=== PATIENT | male | born 1945 | race Caucasian/White ===

== ENCOUNTER → 2019-08-03 08:35 | Outpatient (CLI) | payer MEDICARE, OTHER, SELFPAY ==
[2019-07-15 10:09] VITALS: BMI 27.3
--- NOTE | 2019-08-03 08:38 | ECHOD_ITS ---
Reason For Study: Valve Replacement Evaluation Procedure This was a 2D Doppler, Color Flow transthoracic echocardiogram. The study was technically difficult. Exam performed in department. Left Ventricle Normal LV size. Left ventricular systolic function is normal. The estimated ejection fraction is 55 %. Post operative septal motion. Right Ventricle Normal RV size. Normal systolic function. Atria The left atrium is mildly enlarged. Normal right atrium. No doppler evidence for ASD. Mitral Valve Mild-Moderate mitral valve stenosis. Stable appearing bioprosthetic mitral valve apparatus. Trivial transvalvular insufficiency of the mitral valve. Tricuspid Valve Normal tricuspid valve. Trivial tricuspid valve insufficiency. Right ventricular systolic pressure estimated to be 27 mmHg. Aortic Valve Trisinus/trileaflet aortic valve. Mild focal aortic valve calcification. Trivial aortic valve insufficiency. Pulmonic Valve The pulmonic valve is not well visualized. Trivial pulmonic valve insufficiency. Great Vessels The aortic root is not well visualized. Pericardium/Pleural No pericardial effusion. MMode/2D Measurements & Calculations LVIDd: 4.1 cm IVSd: 1.3 cm LA dimension: 4.5 cm LVIDs: 2.6 cm LVPWd: 0.96 cm RVDd: 4.2 cm FS: 35.3 % LAV(MOD-bp): 51.4 ml LA A4 area: 17.9 cm2 RA A4 area: 17.2 cm2 LAV(MOD-bp) Indexed: 23.6 ml/m2 LAV(MOD-sp2): 57.3 ml LAV(MOD-sp4): 44.8 ml Time Measurements MV dec time: 0.40 sec Doppler Measurements & Calculations MV E max gildardo: 155.3 cm/sec Lat Peak E' Gildardo: 3.4 cm/sec MV V2 max: 192.6 cm/sec MV A max gildardo: 95.4 cm/sec E/E' lat: 46.3 MV max P.8 mmHg MV E/A: 1.6 MV V2 mean: 101.4 cm/sec MV mean P.9 mmHg MV V2 VTI: 63.4 cm MV P1/2t max gildardo: 192.6 cm/sec Ao V2 max: 146.4 cm/sec AI max gildardo: 427.6 cm/sec MV P1/2t: 121.2 msec Ao max P.6 mmHg AI max P.1 mmHg MV dec slope: 465.4 cm/sec2 Ao V2 mean: 98.7 cm/sec AI dec slope: 218.4 cm/sec2 MVA(P1/2t): 1.8 cm2 Ao mean P.4 mmHg AI P1/2t: 573.3 msec Ao V2 VTI: 30.2 cm LV V1 max: 84.1 cm/sec PA V2 max: 95.3 cm/sec TR max gildardo: 243.9 cm/sec LV V1 max P.8 mmHg TR max P.8 mmHg LV V1 mean P.5 mmHg LV V1 mean: 57.3 cm/sec LV V1 VTI: 20.1 cm Interpretation Summary The study was technically difficult. Left ventricular systolic function is normal. The estimated ejection fraction is 55 %. Post operative septal motion. The left atrium is mildly enlarged. Stable appearing bioprosthetic mitral valve apparatus. Mild-Moderate mitral valve stenosis. Trivial transvalvular insufficiency of the mitral valve. Trivial tricuspid valve insufficiency. Mild focal aortic valve calcification. Trivial aortic valve insufficiency. Trivial pulmonic valve insufficiency. Right ventricular systolic pressure estimated to be 27 mmHg. Transmitral diastolic flow velocities suggest diastolic dysfunction (pseudonormal pattern). Ordering Physician: Jin Bower Referring Physician: Paola Carter Performed By: Riley Pedroza RCS
== END ==
PROVIDERS: Family Provider Internal Medicine; PCP Internal Medicine; Referring Provider Internal Medicine Cardiovascular Disease; Visit Provider Internal Medicine Cardiovascular Disease
DX: I48.0 Paroxysmal atrial fibrillation (principal); Z95.3 Presence of xenogenic heart valve
CPT/HCPCS: 93306

== ENCOUNTER 2019-08-13 09:49 | Outpatient (RCR) | payer MEDICARE, OTHER, SELFPAY ==
[2019-07-15 10:09] VITALS: BMI 27.3
[2019-08-13 11:07] LABS: International Normalized Ratio 2.8; Prothrombin Time (Protime)PT. 29.2 SECONDS (11.7-14.9)
== END 2019-08-13 18:00 | disposition home or self-care (01) ==
LOC: LAB 09:49
PROVIDERS: Family Provider Internal Medicine; PCP Internal Medicine; Referring Provider Internal Medicine Cardiovascular Disease; Visit Provider Internal Medicine Cardiovascular Disease
DX: I48.92 Unspecified atrial flutter (principal); Z79.01 Long term (current) use of anticoagulants
CPT/HCPCS: 36415; 85610

== ENCOUNTER 2019-09-13 10:46 | Outpatient (RCR) | payer MEDICARE, OTHER, SELFPAY ==
[2019-07-15 10:09] VITALS: BMI 27.3
[2019-09-13 11:45] LABS: International Normalized Ratio 3.2; Prothrombin Time (Protime)PT. 32.9 SECONDS (11.7-14.9)
== END 2019-09-13 18:00 | disposition home or self-care (01) ==
LOC: LAB 10:46
PROVIDERS: Family Provider Internal Medicine; PCP Internal Medicine; Referring Provider Internal Medicine Cardiovascular Disease; Visit Provider Internal Medicine Cardiovascular Disease
DX: I48.92 Unspecified atrial flutter (principal); Z79.01 Long term (current) use of anticoagulants
CPT/HCPCS: 36415; 85610

== ENCOUNTER 2019-09-27 10:06 | Outpatient (RCR) | payer MEDICARE, OTHER, SELFPAY ==
[2019-07-15 10:09] VITALS: BMI 27.3
[2019-09-27 10:56] LABS: International Normalized Ratio 2.1; Prothrombin Time (Protime)PT. 23.9 SECONDS (11.7-14.9)
== END 2019-09-27 18:00 | disposition home or self-care (01) ==
LOC: LAB 10:06
PROVIDERS: Family Provider Internal Medicine; PCP Internal Medicine; Referring Provider Internal Medicine Cardiovascular Disease; Visit Provider Internal Medicine Cardiovascular Disease
DX: I48.92 Unspecified atrial flutter (principal); Z79.01 Long term (current) use of anticoagulants
CPT/HCPCS: 36415; 85610

== ENCOUNTER 2019-11-01 10:55 | Outpatient (RCR) | payer MEDICARE, OTHER, SELFPAY ==
[2019-07-15 10:09] VITALS: BMI 27.3
[2019-11-01 11:41] LABS: International Normalized Ratio 2.7; Prothrombin Time (Protime)PT. 28.4 SECONDS (11.7-14.9)
== END 2019-11-01 18:00 | disposition home or self-care (01) ==
LOC: LAB 10:55
PROVIDERS: Family Provider Internal Medicine; PCP Internal Medicine; Referring Provider Internal Medicine Cardiovascular Disease; Visit Provider Internal Medicine Cardiovascular Disease
DX: I48.92 Unspecified atrial flutter (principal); Z79.01 Long term (current) use of anticoagulants
CPT/HCPCS: 36415; 85610

== ENCOUNTER 2019-11-29 11:05 | Outpatient (RCR) | payer MEDICARE, OTHER, SELFPAY ==
[2019-07-15 10:09] VITALS: BMI 27.3
[2019-11-29 11:57] LABS: International Normalized Ratio 2.3; Prothrombin Time (Protime)PT. 25.7 SECONDS (11.7-14.9)
== END 2019-11-29 18:00 | disposition home or self-care (01) ==
LOC: LAB 11:05
PROVIDERS: Family Provider Internal Medicine; PCP Internal Medicine; Referring Provider Internal Medicine Cardiovascular Disease; Visit Provider Internal Medicine Cardiovascular Disease
DX: I48.92 Unspecified atrial flutter (principal); Z79.01 Long term (current) use of anticoagulants
CPT/HCPCS: 36415; 85610

== ENCOUNTER 2019-12-29 10:53 | Outpatient (RCR) | payer MEDICARE, OTHER, SELFPAY ==
[2019-07-15 10:09] VITALS: BMI 27.3
[2019-12-29 12:35] LABS: International Normalized Ratio 2.6; Prothrombin Time (Protime)PT. 27.7 SECONDS (11.7-14.9)
== END 2019-12-29 18:00 | disposition home or self-care (01) ==
LOC: LAB 10:53
PROVIDERS: Family Provider Internal Medicine; PCP Internal Medicine; Referring Provider Internal Medicine Cardiovascular Disease; Visit Provider Internal Medicine Cardiovascular Disease
DX: I48.92 Unspecified atrial flutter (principal); Z79.01 Long term (current) use of anticoagulants
CPT/HCPCS: 36415; 85610

== ENCOUNTER 2020-01-31 10:12 | Outpatient (RCR) | payer MEDICARE, OTHER, SELFPAY ==
[2019-07-15 10:09] VITALS: BMI 27.3
[2020-01-31 10:42] LABS: International Normalized Ratio 2.5; Prothrombin Time (Protime)PT. 26.5 SECONDS (11.7-14.9)
== END 2020-02-24 18:00 | disposition home or self-care (01) ==
LOC: LAB 10:12
PROVIDERS: Family Provider Internal Medicine; PCP Internal Medicine; Referring Provider Internal Medicine Cardiovascular Disease; Visit Provider Internal Medicine Cardiovascular Disease
DX: I48.92 Unspecified atrial flutter (principal); Z79.01 Long term (current) use of anticoagulants
CPT/HCPCS: 36415; 85610

== ENCOUNTER 2020-03-02 09:49 | Outpatient (RCR) | payer MEDICARE, OTHER, SELFPAY ==
[2020-02-07 10:54] VITALS: BMI 26.9
[2020-03-02 10:23] LABS: International Normalized Ratio 2.6
== END 2020-03-02 18:00 | disposition home or self-care (01) ==
LOC: LAB 09:49
PROVIDERS: Family Provider Internal Medicine; PCP Internal Medicine; Referring Provider Internal Medicine Cardiovascular Disease; Visit Provider Internal Medicine Cardiovascular Disease
DX: I48.92 Unspecified atrial flutter (principal); Z79.01 Long term (current) use of anticoagulants
CPT/HCPCS: 36415; 85610

== ENCOUNTER 2020-03-30 10:02 | Outpatient (RCR) | payer MEDICARE, OTHER, SELFPAY ==
[2020-02-07 10:54] VITALS: BMI 26.9
[2020-03-30 10:55] LABS: International Normalized Ratio 2.5
== END 2020-03-30 18:00 | disposition home or self-care (01) ==
LOC: LAB 10:02
PROVIDERS: Family Provider Internal Medicine; PCP Internal Medicine; Referring Provider Internal Medicine Cardiovascular Disease; Visit Provider Internal Medicine Cardiovascular Disease
DX: I48.92 Unspecified atrial flutter (principal); Z79.01 Long term (current) use of anticoagulants
CPT/HCPCS: 36415; 85610

== ENCOUNTER 2020-05-01 09:49 | Outpatient (RCR) | payer MEDICARE, OTHER, SELFPAY ==
[2020-02-07 10:54] VITALS: BMI 26.9
[2020-05-01 10:44] LABS: International Normalized Ratio 2.7; Prothrombin Time (Protime)PT. 28.5 SECONDS (11.7-14.9)
== END 2020-05-01 18:00 | disposition home or self-care (01) ==
LOC: LAB 09:49
PROVIDERS: Family Provider Internal Medicine; PCP Internal Medicine; Referring Provider Internal Medicine Cardiovascular Disease; Visit Provider Internal Medicine Cardiovascular Disease
DX: I48.92 Unspecified atrial flutter (principal); Z79.01 Long term (current) use of anticoagulants
CPT/HCPCS: 36415; 85610

== ENCOUNTER → 2020-05-26 09:42 | Outpatient (CLI) | payer MEDICARE, OTHER, SELFPAY ==
[2020-05-26 08:49] VITALS: BMI 27.3
[2020-05-26 11:32] LABS: AST(SGOT) 19 U/L (15-37); Alanine Aminotransfer ALT/SGPT 39 U/L (16-61); Albumin, Serum 3.9 g/dL (3.2-5.0); Alkaline Phosphatase 73 U/L (45-117); Anion Gap 2 (5-15); BUN 18 mg/dL (7-18); BUN/Creat Ratio 18.3 RATIO (10-20); Bilirubin, Direct 0.18 mg/dL (0.00-0.30); Calcium,Total 9.1 mg/dL (8.5-10.1); Chloride 103 mmol/L (98-107); Cholesterol 173 mg/dL (200); Creatinine, Serum 0.98 mg/dL (0.70-1.30); EST Glomerular Filtration Rate 79 mL/min (>60); Est Glom Filt Rate - Afr Amer 96 mL/min (>60); Globulin 3.9 g/dL (2.2-4.2); Glucose 111 mg/dL (74-106); High Density Lipoprotein 46 mg/dL; Magnesium 2.1 mg/dL (1.6-2.6); Potassium 4.2 mmol/L (3.5-5.1); Protein, Total 7.8 g/dL (6.4-8.2); Sodium Level 135 mmol/L (136-145); Triglycerides 135 mg/dL; Very Low Density Lipoprotein 27 mg/dL (5-40)
== END ==
PROVIDERS: PCP Internal Medicine; Referring Provider Internal Medicine Cardiovascular Disease; Visit Provider Internal Medicine Cardiovascular Disease
DX: E78.00 Pure hypercholesterolemia, unspecified (principal); I48.0 Paroxysmal atrial fibrillation; I48.92 Unspecified atrial flutter; Z98.890 Other specified postprocedural states; I10 Essential (primary) hypertension; Z79.01 Long term (current) use of anticoagulants; Z95.3 Presence of xenogenic heart valve
CPT/HCPCS: 36415; 80048; 80061; 80076; 83735

== ENCOUNTER 2020-05-30 10:24 | Outpatient (RCR) | payer MEDICARE, OTHER, SELFPAY ==
[2020-05-26 08:49] VITALS: BMI 27.3
[2020-05-30 11:03] LABS: International Normalized Ratio 2.5; Prothrombin Time (Protime)PT. 26.9 SECONDS (11.7-14.9)
== END 2020-06-26 18:00 | disposition home or self-care (01) ==
LOC: LAB 10:24
PROVIDERS: Family Provider Internal Medicine; PCP Internal Medicine; Referring Provider Internal Medicine Cardiovascular Disease; Visit Provider Internal Medicine Cardiovascular Disease
DX: I48.92 Unspecified atrial flutter (principal); Z79.01 Long term (current) use of anticoagulants
CPT/HCPCS: 36415; 85610

== ENCOUNTER 2020-06-30 09:57 | Outpatient (RCR) | payer MEDICARE, OTHER, SELFPAY ==
[2020-05-26 08:49] VITALS: BMI 27.3
[2020-06-30 10:39] LABS: International Normalized Ratio 2.5; Prothrombin Time (Protime)PT. 26.6 SECONDS (11.7-14.9)
== END 2020-06-30 18:00 | disposition home or self-care (01) ==
LOC: LAB 09:57
PROVIDERS: Family Provider Internal Medicine; PCP Internal Medicine; Referring Provider Internal Medicine Cardiovascular Disease; Visit Provider Internal Medicine Cardiovascular Disease
DX: I48.92 Unspecified atrial flutter (principal); Z79.01 Long term (current) use of anticoagulants
CPT/HCPCS: 36415; 85610

== ENCOUNTER 2020-07-31 10:10 | Outpatient (RCR) | payer MEDICARE, OTHER, SELFPAY ==
[2020-05-26 08:49] VITALS: BMI 27.3
[2020-07-31 11:20] LABS: International Normalized Ratio 2.9; Prothrombin Time (Protime)PT. 30.3 SECONDS (11.7-14.9)
== END 2020-07-31 18:00 | disposition home or self-care (01) ==
LOC: LAB 10:10
PROVIDERS: Family Provider Internal Medicine; PCP Internal Medicine; Referring Provider Internal Medicine Cardiovascular Disease; Visit Provider Internal Medicine Cardiovascular Disease
DX: I48.92 Unspecified atrial flutter (principal); Z79.01 Long term (current) use of anticoagulants
CPT/HCPCS: 36415; 85610

== ENCOUNTER 2020-09-13 13:50 | Outpatient (RCR) | payer MEDICARE, OTHER, SELFPAY ==
[2020-05-26 08:49] VITALS: BMI 27.3
[2020-08-29 11:52] LABS: Prothrombin Time (Protime)PT. 30.5 SECONDS (11.7-14.9)
[2020-09-13 17:35] LABS: International Normalized Ratio 2.6; Prothrombin Time (Protime)PT. 27.8 SECONDS (11.7-14.9)
== END 2020-09-13 18:00 | disposition home or self-care (01) ==
LOC: LAB 13:50
PROVIDERS: Family Provider Internal Medicine; PCP Internal Medicine; Referring Provider Internal Medicine Cardiovascular Disease; Visit Provider Internal Medicine Cardiovascular Disease
DX: I48.92 Unspecified atrial flutter (principal); Z79.01 Long term (current) use of anticoagulants
CPT/HCPCS: 36415; 85610

== ENCOUNTER 2020-10-12 13:48 | Outpatient (RCR) | payer MEDICARE, OTHER, SELFPAY ==
[2020-05-26 08:49] VITALS: BMI 27.3
[2020-10-12 14:20] LABS: International Normalized Ratio 2.9; Prothrombin Time (Protime)PT. 30.3 SECONDS (11.7-14.9)
== END 2020-10-12 18:00 | disposition home or self-care (01) ==
LOC: LAB 13:48
PROVIDERS: Family Provider Internal Medicine; PCP Internal Medicine; Referring Provider Internal Medicine Cardiovascular Disease; Visit Provider Internal Medicine Cardiovascular Disease
DX: I48.92 Unspecified atrial flutter (principal); Z79.01 Long term (current) use of anticoagulants
CPT/HCPCS: 36415; 85610

== ENCOUNTER 2020-11-13 08:55 | Outpatient (RCR) | payer MEDICARE, OTHER, SELFPAY ==
[2020-05-26 08:49] VITALS: BMI 27.3
[2020-11-13 09:49] LABS: International Normalized Ratio 2.9; Prothrombin Time (Protime)PT. 29.5 SECONDS (11.7-14.9)
[2020-11-13 10:19] LABS: AST(SGOT) 16 U/L (15-37); Alanine Aminotransfer ALT/SGPT 31 U/L (16-61); Alkaline Phosphatase 80 U/L (45-117); Bilirubin, Direct 0.31 mg/dL (0.00-0.30); Cholesterol 158 mg/dL (200); High Density Lipoprotein 49 mg/dL; Triglycerides 117 mg/dL; Very Low Density Lipoprotein 23 mg/dL (5-40)
== END 2020-11-13 18:00 | disposition home or self-care (01) ==
LOC: LAB 08:55
PROVIDERS: Family Provider Internal Medicine; PCP Internal Medicine; Referring Provider Internal Medicine Cardiovascular Disease; Visit Provider Internal Medicine Cardiovascular Disease
DX: I48.92 Unspecified atrial flutter (principal); Z79.01 Long term (current) use of anticoagulants; E78.00 Pure hypercholesterolemia, unspecified
CPT/HCPCS: 36415; 80061; 80076; 85610

== ENCOUNTER 2020-12-14 09:30 | Outpatient (RCR) | payer MEDICARE, OTHER, SELFPAY ==
[2020-11-20 09:19] VITALS: BMI 27.6
[2020-12-14 10:11] LABS: International Normalized Ratio 2.7; Prothrombin Time (Protime)PT. 28.2 SECONDS (11.7-14.9)
== END 2020-12-14 18:00 | disposition home or self-care (01) ==
LOC: LAB 09:30
PROVIDERS: Family Provider Internal Medicine; PCP Internal Medicine; Referring Provider Internal Medicine Cardiovascular Disease; Visit Provider Internal Medicine Cardiovascular Disease
DX: I48.92 Unspecified atrial flutter (principal); Z79.01 Long term (current) use of anticoagulants
CPT/HCPCS: 36415; 85610

== ENCOUNTER 2021-01-10 11:08 | Outpatient (RCR) | payer MEDICARE, OTHER, SELFPAY ==
[2020-11-20 09:19] VITALS: BMI 27.6
[2021-01-10 11:48] LABS: International Normalized Ratio 2.5; Prothrombin Time (Protime)PT. 26.7 SECONDS (11.7-14.9)
== END 2021-01-10 18:00 | disposition home or self-care (01) ==
LOC: LAB 11:08
PROVIDERS: Family Provider Internal Medicine; PCP Internal Medicine; Referring Provider Internal Medicine Cardiovascular Disease; Visit Provider Internal Medicine Cardiovascular Disease
DX: Z79.01 Long term (current) use of anticoagulants (principal); I48.92 Unspecified atrial flutter
CPT/HCPCS: 36415; 85610

== ENCOUNTER 2021-02-12 08:20 | Outpatient (RCR) | payer MEDICARE, OTHER, SELFPAY ==
[2020-11-20 09:19] VITALS: BMI 27.6
[2021-02-12 08:55] LABS: International Normalized Ratio 2.1; Prothrombin Time (Protime)PT. 22.9 SECONDS (11.7-14.9)
== END 2021-02-12 18:00 | disposition home or self-care (01) ==
LOC: LAB 08:20
PROVIDERS: Family Provider Internal Medicine; PCP Internal Medicine; Referring Provider Internal Medicine Cardiovascular Disease; Visit Provider Internal Medicine Cardiovascular Disease
DX: I48.92 Unspecified atrial flutter (principal); Z79.01 Long term (current) use of anticoagulants
CPT/HCPCS: 36415; 85610

== ENCOUNTER 2021-03-12 08:31 | Outpatient (RCR) | payer MEDICARE, OTHER, SELFPAY ==
[2020-11-20 09:19] VITALS: BMI 27.6
[2021-03-12 09:07] LABS: International Normalized Ratio 2.5; Prothrombin Time (Protime)PT. 26.2 SECONDS (11.7-14.9)
== END 2021-03-12 18:00 | disposition home or self-care (01) ==
LOC: LAB 08:31
PROVIDERS: Family Provider Internal Medicine; PCP Internal Medicine; Referring Provider Internal Medicine Cardiovascular Disease; Visit Provider Internal Medicine Cardiovascular Disease
DX: I48.92 Unspecified atrial flutter (principal); Z79.01 Long term (current) use of anticoagulants
CPT/HCPCS: 36415; 85610

== ENCOUNTER 2021-04-09 09:59 | Outpatient (RCR) | payer MEDICARE, OTHER, SELFPAY ==
[2020-11-20 09:19] VITALS: BMI 27.6
[2021-04-09 11:04] LABS: International Normalized Ratio 2.4; Prothrombin Time (Protime)PT. 25.4 SECONDS (11.7-14.9)
== END 2021-04-09 18:00 | disposition home or self-care (01) ==
LOC: LAB 09:59
PROVIDERS: Family Provider Internal Medicine; PCP Internal Medicine; Referring Provider Internal Medicine Cardiovascular Disease; Visit Provider Internal Medicine Cardiovascular Disease
DX: I48.92 Unspecified atrial flutter (principal); Z79.01 Long term (current) use of anticoagulants
CPT/HCPCS: 36415; 85610

== ENCOUNTER 2021-05-10 09:04 | Outpatient (RCR) | payer MEDICARE, OTHER, SELFPAY ==
[2020-11-20 09:19] VITALS: BMI 27.6
[2021-05-10 10:11] LABS: International Normalized Ratio 2.5
[2021-05-10 10:50] LABS: AST(SGOT) 22 U/L (15-37); Alanine Aminotransfer ALT/SGPT 41 U/L (16-61); Albumin, Serum 4.2 g/dL (3.2-5.0); Alkaline Phosphatase 74 U/L (45-117); Bilirubin, Direct 0.27 mg/dL (0.00-0.30); Cholesterol 179 mg/dL (200); Globulin 3.8 g/dL (2.2-4.2); High Density Lipoprotein 48 mg/dL; Triglycerides 167 mg/dL; Very Low Density Lipoprotein 33 mg/dL (5-40)
== END 2021-05-10 18:00 | disposition home or self-care (01) ==
LOC: LAB 09:04
PROVIDERS: Family Provider Internal Medicine; PCP Internal Medicine; Referring Provider Internal Medicine Cardiovascular Disease; Visit Provider Internal Medicine Cardiovascular Disease
DX: I48.92 Unspecified atrial flutter (principal); Z79.01 Long term (current) use of anticoagulants; E78.00 Pure hypercholesterolemia, unspecified
CPT/HCPCS: 36415; 80061; 80076; 85610

== ENCOUNTER 2021-06-11 09:25 | Outpatient (RCR) | payer MEDICARE, OTHER, SELFPAY ==
[2020-11-20 09:19] VITALS: BMI 27.6
[2021-06-11 10:32] LABS: International Normalized Ratio 2.6; Prothrombin Time (Protime)PT. 26.6 SECONDS (11.7-14.9)
== END 2021-06-11 18:00 | disposition home or self-care (01) ==
LOC: LAB 09:25
PROVIDERS: Family Provider Internal Medicine; PCP Internal Medicine; Referring Provider Internal Medicine Cardiovascular Disease; Visit Provider Internal Medicine Cardiovascular Disease
DX: I48.92 Unspecified atrial flutter (principal); Z79.01 Long term (current) use of anticoagulants
CPT/HCPCS: 36415; 85610

== ENCOUNTER 2021-07-12 09:49 | Outpatient (RCR) | payer MEDICARE, OTHER, SELFPAY ==
[2021-06-27 00:32] VITALS: BMI 27.6
[2021-07-12 11:20] LABS: International Normalized Ratio 2.5
== END 2021-07-12 18:00 | disposition home or self-care (01) ==
LOC: LAB 09:49
PROVIDERS: Family Provider Internal Medicine; PCP Internal Medicine; Referring Provider Internal Medicine Cardiovascular Disease; Visit Provider Internal Medicine Cardiovascular Disease
DX: I48.92 Unspecified atrial flutter (principal); Z79.01 Long term (current) use of anticoagulants
CPT/HCPCS: 36415; 85610

== ENCOUNTER 2021-08-13 08:53 | Outpatient (RCR) | payer MEDICARE, OTHER, SELFPAY ==
[2021-07-27 00:35] VITALS: BMI 27.6
[2021-08-13 09:49] LABS: International Normalized Ratio 2.3; Prothrombin Time (Protime)PT. 24.2 SECONDS (11.7-14.9)
== END 2021-08-26 05:03 | disposition home or self-care (01) ==
LOC: LAB 08:53
PROVIDERS: Family Provider Internal Medicine; PCP Internal Medicine; Referring Provider Internal Medicine Cardiovascular Disease; Visit Provider Internal Medicine Cardiovascular Disease
DX: I48.92 Unspecified atrial flutter (principal); Z79.01 Long term (current) use of anticoagulants
CPT/HCPCS: 36415; 85610

== ENCOUNTER 2021-09-24 09:22 | Outpatient (RCR) | payer MEDICARE, OTHER, SELFPAY ==
[2021-08-26 05:03] VITALS: BMI 27.6
[2021-09-24 09:55] LABS: International Normalized Ratio 2.5; Prothrombin Time (Protime)PT. 26.3 SECONDS (11.7-14.9)
== END 2021-09-25 18:00 | disposition home or self-care (01) ==
LOC: LAB 09:22
PROVIDERS: Family Provider Internal Medicine; PCP Internal Medicine; Referring Provider Internal Medicine Cardiovascular Disease; Visit Provider Internal Medicine Cardiovascular Disease
DX: I48.92 Unspecified atrial flutter (principal); Z79.01 Long term (current) use of anticoagulants
CPT/HCPCS: 36415; 85610

== ENCOUNTER → 2021-09-28 10:22 | Outpatient (CLI) | payer MEDICARE, OTHER, SELFPAY ==
[2021-09-28 11:49] LABS: Anion Gap 7 (5-15); BUN 16 mg/dL (7-18); BUN/Creat Ratio 15.4 RATIO (10-20); Calcium,Total 9.1 mg/dL (8.5-10.1); Chloride 104 mmol/L (98-107); Creatinine, Serum 1.04 mg/dL (0.70-1.30); EST Glomerular Filtration Rate 74 mL/min (>60); Est Glom Filt Rate - Afr Amer 90 mL/min (>60); Glucose 114 mg/dL (74-106); Potassium 4.3 mmol/L (3.5-5.1); Sodium Level 139 mmol/L (136-145)
== END ==
PROVIDERS: PCP Internal Medicine; Referring Provider Internal Medicine Cardiovascular Disease; Visit Provider Internal Medicine Cardiovascular Disease
DX: I48.0 Paroxysmal atrial fibrillation (principal); Z95.3 Presence of xenogenic heart valve; E78.00 Pure hypercholesterolemia, unspecified; I10 Essential (primary) hypertension; I48.92 Unspecified atrial flutter; Z79.01 Long term (current) use of anticoagulants; Z98.890 Other specified postprocedural states
CPT/HCPCS: 36415; 80048

== ENCOUNTER 2021-10-23 08:55 | Outpatient (RCR) | payer MEDICARE, OTHER, SELFPAY ==
[2021-09-26 03:47] VITALS: BMI 27.6
[2021-10-23 09:51] LABS: International Normalized Ratio 3.3; Prothrombin Time (Protime)PT. 32.7 SECONDS (11.7-14.9)
== END 2021-10-27 18:00 | disposition home or self-care (01) ==
LOC: LAB 08:55
PROVIDERS: Family Provider Internal Medicine; PCP Internal Medicine; Referring Provider Internal Medicine Cardiovascular Disease; Visit Provider Internal Medicine Cardiovascular Disease
DX: I48.92 Unspecified atrial flutter (principal); Z79.01 Long term (current) use of anticoagulants
CPT/HCPCS: 36415; 85610

== ENCOUNTER 2021-11-09 07:56 | Outpatient (RCR) | payer MEDICARE, OTHER, SELFPAY ==
[2021-10-29 02:32] VITALS: BMI 27.6
[2021-11-09 08:43] LABS: International Normalized Ratio 1.9; Prothrombin Time (Protime)PT. 20.7 SECONDS (11.7-14.9)
[2021-11-09 09:12] LABS: AST(SGOT) 23 U/L (15-37); Alanine Aminotransfer ALT/SGPT 50 U/L (16-61); Albumin, Serum 4.3 g/dL (3.2-5.0); Alkaline Phosphatase 75 U/L (45-117); Bilirubin, Direct 0.23 mg/dL (0.00-0.30); Cholesterol 172 mg/dL (200); High Density Lipoprotein 50 mg/dL; Protein, Total 8.3 g/dL (6.4-8.2); Triglycerides 156 mg/dL; Very Low Density Lipoprotein 31 mg/dL (5-40)
== END 2021-11-26 18:00 | disposition home or self-care (01) ==
LOC: LAB 07:56
PROVIDERS: Family Provider Internal Medicine; PCP Internal Medicine; Referring Provider Internal Medicine Cardiovascular Disease; Visit Provider Internal Medicine Cardiovascular Disease
DX: I48.92 Unspecified atrial flutter (principal); Z79.01 Long term (current) use of anticoagulants; E78.00 Pure hypercholesterolemia, unspecified; Z95.3 Presence of xenogenic heart valve
CPT/HCPCS: 36415; 80061; 80076; 85610

== ENCOUNTER 2021-12-10 09:31 | Outpatient (RCR) | payer MEDICARE, OTHER, SELFPAY ==
[2021-11-27 02:21] VITALS: BMI 27.6
[2021-12-10 10:31] LABS: International Normalized Ratio 2.7; Prothrombin Time (Protime)PT. 27.6 SECONDS (11.7-14.9)
== END 2021-12-10 23:59 | disposition home or self-care (01) ==
LOC: LAB 09:31
PROVIDERS: Family Provider Internal Medicine; PCP Internal Medicine; Referring Provider Internal Medicine Cardiovascular Disease; Visit Provider Internal Medicine Cardiovascular Disease
DX: I48.92 Unspecified atrial flutter (principal); Z79.01 Long term (current) use of anticoagulants
CPT/HCPCS: 36415; 85610

== ENCOUNTER 2022-01-15 10:12 | Outpatient (RCR) | payer MEDICARE, OTHER, SELFPAY ==
[2021-12-25 10:28] VITALS: BMI 27.6
[2022-01-15 10:56] LABS: International Normalized Ratio 2.6; Prothrombin Time (Protime)PT. 27.3 SECONDS (11.7-14.9)
== END 2022-01-24 18:00 | disposition home or self-care (01) ==
LOC: LAB 10:12
PROVIDERS: Family Provider Internal Medicine; PCP Internal Medicine; Referring Provider Internal Medicine Cardiovascular Disease; Visit Provider Internal Medicine Cardiovascular Disease
DX: I48.92 Unspecified atrial flutter (principal); Z79.01 Long term (current) use of anticoagulants
CPT/HCPCS: 36415; 85610

== ENCOUNTER 2022-02-15 09:17 | Outpatient (RCR) | payer MEDICARE, OTHER, SELFPAY ==
[2022-01-25 03:31] VITALS: BMI 27.6
[2022-02-15 11:09] LABS: International Normalized Ratio 2.8; Prothrombin Time (Protime)PT. 28.8 SECONDS (11.7-14.9)
== END 2022-02-15 18:00 | disposition home or self-care (01) ==
LOC: LAB 09:17
PROVIDERS: Family Provider Internal Medicine; PCP Internal Medicine; Referring Provider Internal Medicine Cardiovascular Disease; Visit Provider Internal Medicine Cardiovascular Disease
DX: I48.92 Unspecified atrial flutter (principal); Z79.01 Long term (current) use of anticoagulants
CPT/HCPCS: 36415; 85610

== ENCOUNTER 2022-03-15 09:48 | Outpatient (RCR) | payer MEDICARE, OTHER, SELFPAY ==
[2022-02-24 04:41] VITALS: BMI 27.6
[2022-03-15 10:29] LABS: International Normalized Ratio 2.3; Prothrombin Time (Protime)PT. 25.4 SECONDS (11.7-14.9)
== END 2022-03-15 18:00 | disposition home or self-care (01) ==
LOC: LAB 09:48
PROVIDERS: Family Provider Internal Medicine; PCP Internal Medicine; Referring Provider Internal Medicine Cardiovascular Disease; Visit Provider Internal Medicine Cardiovascular Disease
DX: I48.92 Unspecified atrial flutter (principal); Z79.01 Long term (current) use of anticoagulants
CPT/HCPCS: 36415; 85610

== ENCOUNTER 2022-04-15 09:03 | Outpatient (RCR) | payer MEDICARE, OTHER, SELFPAY ==
[2022-03-26 21:24] VITALS: BMI 27.6
[2022-04-08 10:56] LABS: International Normalized Ratio 1.6; Prothrombin Time (Protime)PT. 18.5 SECONDS (11.7-14.9)
[2022-04-15 10:15] LABS: International Normalized Ratio 2.6; Prothrombin Time (Protime)PT. 27.2 SECONDS (11.7-14.9)
== END 2022-04-15 23:59 | disposition home or self-care (01) ==
LOC: LAB 09:03
PROVIDERS: Family Provider Internal Medicine; PCP Internal Medicine; Referring Provider Internal Medicine Cardiovascular Disease; Visit Provider Internal Medicine Cardiovascular Disease
DX: I48.92 Unspecified atrial flutter (principal); Z79.01 Long term (current) use of anticoagulants
CPT/HCPCS: 36415; 85610

== ENCOUNTER 2022-05-23 08:16 | Outpatient (RCR) | payer MEDICARE, OTHER, SELFPAY ==
[2022-04-26 07:43] VITALS: BMI 27.6
[2022-05-02 09:10] LABS: International Normalized Ratio 2.8; Prothrombin Time (Protime)PT. 28.9 SECONDS (11.7-14.9)
[2022-05-23 09:24] LABS: International Normalized Ratio 2.6; Prothrombin Time (Protime)PT. 27.4 SECONDS (11.7-14.9)
== END 2022-05-26 03:09 | disposition home or self-care (01) ==
LOC: LAB 08:16
PROVIDERS: Family Provider Internal Medicine; PCP Internal Medicine; Referring Provider Internal Medicine Cardiovascular Disease; Visit Provider Internal Medicine Cardiovascular Disease
DX: I48.92 Unspecified atrial flutter (principal); Z79.01 Long term (current) use of anticoagulants
CPT/HCPCS: 36415; 85610

== ENCOUNTER 2022-06-20 08:47 | Outpatient (RCR) | payer MEDICARE, OTHER, SELFPAY ==
[2022-05-26 03:09] VITALS: BMI 27.6
[2022-06-20 10:08] LABS: International Normalized Ratio 2.3; Prothrombin Time (Protime)PT. 25.1 SECONDS (11.7-14.9)
== END 2022-06-20 18:00 | disposition home or self-care (01) ==
LOC: LAB 08:47
PROVIDERS: Family Provider Internal Medicine; PCP Internal Medicine; Referring Provider Internal Medicine Cardiovascular Disease; Visit Provider Internal Medicine Cardiovascular Disease
DX: I48.92 Unspecified atrial flutter (principal); Z79.01 Long term (current) use of anticoagulants
CPT/HCPCS: 36415; 85610

== ENCOUNTER 2022-07-22 08:53 | Outpatient (RCR) | payer MEDICARE, OTHER, SELFPAY ==
[2022-06-27 00:21] VITALS: BMI 27.6
[2022-07-22 09:53] LABS: International Normalized Ratio 2.1; Prothrombin Time (Protime)PT. 23.6 SECONDS (11.7-14.9)
== END 2022-07-22 18:00 | disposition home or self-care (01) ==
LOC: LAB 08:53
PROVIDERS: Family Provider Internal Medicine; PCP Internal Medicine; Referring Provider Internal Medicine Cardiovascular Disease; Visit Provider Internal Medicine Cardiovascular Disease
DX: I48.92 Unspecified atrial flutter (principal); Z79.01 Long term (current) use of anticoagulants
CPT/HCPCS: 36415; 85610

== ENCOUNTER 2022-08-20 08:41 | Outpatient (RCR) | payer MEDICARE, OTHER, SELFPAY ==
[2022-07-26 23:29] VITALS: BMI 27.6
[2022-08-20 09:57] LABS: Prothrombin Time (Protime)PT. 30.6 SECONDS (11.7-14.9)
== END 2022-08-20 18:00 | disposition home or self-care (01) ==
LOC: LAB 08:41
PROVIDERS: Family Provider Internal Medicine; PCP Internal Medicine; Referring Provider Internal Medicine Cardiovascular Disease; Visit Provider Internal Medicine Cardiovascular Disease
DX: I48.92 Unspecified atrial flutter (principal); Z79.01 Long term (current) use of anticoagulants
CPT/HCPCS: 36415; 85610

== ENCOUNTER 2022-09-25 11:33 | Outpatient (RCR) | payer MEDICARE, OTHER, SELFPAY ==
[2022-08-27 10:16] VITALS: BMI 27.6
[2022-09-25 12:25] LABS: International Normalized Ratio 3.1; Prothrombin Time (Protime)PT. 31.4 SECONDS (11.7-14.9)
== END 2022-09-25 18:00 | disposition home or self-care (01) ==
LOC: LAB 11:33
PROVIDERS: Family Provider Internal Medicine; PCP Internal Medicine; Referring Provider Internal Medicine Cardiovascular Disease; Visit Provider Internal Medicine Cardiovascular Disease
DX: I48.92 Unspecified atrial flutter (principal); Z79.01 Long term (current) use of anticoagulants; I48.0 Paroxysmal atrial fibrillation
CPT/HCPCS: 36415; 85610

== ENCOUNTER → 2022-10-08 | Outpatient (CLI) | payer MEDICARE, OTHER, SELFPAY ==
--- NOTE | 2022-10-08 08:29 | ECHOD_ITS ---
Reason For Study: Mitral Valve Replacement Procedure This was a 2D Doppler, Color Flow transthoracic echocardiogram. The exam was of adequate technical quality. Exam performed in department. Left Ventricle Normal LV size. Mild concentric left ventricular hypertrophy. Left ventricular systolic function is normal. The estimated ejection fraction is 60 %. Post operative septal motion. Stage 2 diastolic dysfunction. Right Ventricle Normal RV size. Normal systolic function. Atria The left atrium is mildly enlarged. Normal right atrium. No doppler evidence for ASD. Mitral Valve Mild mitral valve stenosis. Stable appearing bioprosthetic mitral valve apparatus. Trivial transvalvular insufficiency of the mitral valve. Tricuspid Valve Normal tricuspid valve. Trivial tricuspid valve insufficiency. Right ventricular systolic pressure estimated to be 19 mmHg. Aortic Valve Trisinus/trileaflet aortic valve. Mild diffuse aortic valve thickening. Mild focal aortic valve calcification. Trivial aortic valve insufficiency. Pulmonic Valve The pulmonic valve is not well visualized. Mild (1+) eccentric pulmonic valve insufficiency. Great Vessels Normal sized aortic root. Pericardium/Pleural No pericardial effusion. MMode/2D Measurements & Calculations LVIDd: 4.8 cm IVSd: 1.3 cm LVOT diam: 2.1 cm LVIDs: 2.7 cm LVPWd: 1.3 cm LVOT area: 3.6 cm2 RVDd: 3.4 cm FS: 42.7 % Ao root diam: 3.7 cm LAV(MOD-bp): 71.5 ml LVAd ap4: 28.1 cm2 LAV(MOD-bp) Indexed: 34.3 ml/m2 LVLd ap4: 7.4 cm LAV(MOD-sp2): 98.3 ml EDV(MOD-sp4): 88.6 ml LAV(MOD-sp4): 52.4 ml EDV(sp4-el): 90.7 ml LVAs ap4: 16.1 cm2 LVLs ap4: 6.8 cm ESV(MOD-sp4): 32.5 ml ESV(sp4-el): 32.5 ml EF(MOD-sp4): 63.3 % EF(sp4-el): 64.2 % LVAd ap2: 21.9 cm2 SV(MOD-sp4): 56.1 ml SV(MOD-sp2): 36.9 ml LVLd ap2: 7.0 cm EDV(MOD-sp2): 57.8 ml EDV(sp2-el): 58.6 ml LVAs ap2: 13.0 cm2 LVLs ap2: 7.0 cm ESV(MOD-sp2): 20.9 ml ESV(sp2-el): 20.4 ml EF(MOD-sp2): 63.8 % SV(sp4-el): 58.3 ml LA dimension(2D): 4.4 cm LA A4 area: 19.4 cm2 RA A4 area: 11.4 cm2 Time Measurements MV dec time: 0.41 sec Doppler Measurements & Calculations MV E max gildardo: 119.5 cm/sec Lat Peak E' Gildardo: 8.9 cm/sec Med Peak E' Gildardo: 5.5 cm/sec MV A max gildardo: 95.0 cm/sec E/E' lat: 13.5 E/E' med: 21.6 MV E/A: 1.3 MV V2 max: 130.6 cm/sec MV P1/2t max gildardo: 127.4 cm/sec Ao V2 max: 194.0 cm/sec MV max P.8 mmHg MV P1/2t: 118.0 msec Ao max P.1 mmHg MV V2 mean: 86.3 cm/sec Ao V2 mean: 133.4 cm/sec MV mean P.2 mmHg MV dec slope: 316.2 cm/sec2 Ao mean P.2 mmHg MV V2 VTI: 41.1 cm MVA(P1/2t): 1.9 cm2 Ao V2 VTI: 41.5 cm AV (velocity ratio): 0.69 MVA(VTI): 2.5 cm2 HALI(I,D): 2.5 cm2 HALI(V,D): 2.3 cm2 AI max gildardo: 406.4 cm/sec LV V1 max: 127.5 cm/sec SV(LVOT): 101.9 ml AI max P.1 mmHg LV V1 max P.5 mmHg AI dec slope: 198.2 cm/sec2 LV V1 mean P.5 mmHg AI P1/2t: 600.5 msec LV V1 mean: 85.0 cm/sec LV V1 VTI: 28.7 cm PA V2 max: 89.8 cm/sec TR max gildardo: 200.2 cm/sec TR max P.1 mmHg ECHO/Echo Complete Interpretation Summary Left ventricular systolic function is normal. The estimated ejection fraction is 60 %. Post operative septal motion. Mild concentric left ventricular hypertrophy. The left atrium is mildly enlarged. Stable appearing bioprosthetic mitral valve apparatus. Mild mitral valve stenosis. Trivial transvalvular insufficiency of the mitral valve. Trivial tricuspid valve insufficiency. Mild diffuse aortic valve thickening. Mild focal aortic valve calcification. Trivial aortic valve insufficiency. Mild (1+) eccentric pulmonic valve insufficiency. Right ventricular systolic pressure estimated to be 19 mmHg. Stage 2 diastolic dysfunction. Ordering Physician: Momo Perry/Jin Bower Referring Physician: Paola Carter Performed By: Johnna Greer RDCS
== END | disposition home or self-care (01) ==
LOC: CVS 08:28
PROVIDERS: PCP Internal Medicine; Visit Provider Nurse Practitioner Family
DX: Z95.3 Presence of xenogenic heart valve (principal); I48.0 Paroxysmal atrial fibrillation; I48.92 Unspecified atrial flutter; Z98.890 Other specified postprocedural states; E78.00 Pure hypercholesterolemia, unspecified; I10 Essential (primary) hypertension; Z79.01 Long term (current) use of anticoagulants
CPT/HCPCS: 93306

== ENCOUNTER 2022-10-10 09:24 | Outpatient (RCR) | payer MEDICARE, OTHER, SELFPAY ==
[2022-09-26 01:26] VITALS: BMI 27.6
[2022-10-10 10:20] LABS: International Normalized Ratio 2.6; Prothrombin Time (Protime)PT. 27.3 SECONDS (11.7-14.9)
== END 2022-10-10 18:00 | disposition home or self-care (01) ==
LOC: LAB 09:24
PROVIDERS: Nurse Practitioner Family; Family Provider Internal Medicine; PCP Internal Medicine; Referring Provider Internal Medicine Cardiovascular Disease; Visit Provider Internal Medicine Cardiovascular Disease
DX: I48.92 Unspecified atrial flutter (principal); Z79.01 Long term (current) use of anticoagulants; I48.0 Paroxysmal atrial fibrillation
CPT/HCPCS: 36415; 85610

== ENCOUNTER 2022-11-11 09:25 | Outpatient (RCR) | payer MEDICARE, OTHER, SELFPAY ==
[2022-10-27 05:24] VITALS: BMI 27.6
[2022-11-11 10:32] LABS: International Normalized Ratio 2.4; Prothrombin Time (Protime)PT. 25.4 SECONDS (11.7-14.9)
== END 2022-11-11 11:00 | disposition home or self-care (01) ==
LOC: LAB 09:25
PROVIDERS: Family Provider Internal Medicine; PCP Internal Medicine; Referring Provider Internal Medicine Cardiovascular Disease; Visit Provider Internal Medicine Cardiovascular Disease
DX: I48.92 Unspecified atrial flutter (principal); Z79.01 Long term (current) use of anticoagulants; I48.0 Paroxysmal atrial fibrillation
CPT/HCPCS: 36415; 85610

== ENCOUNTER 2022-12-12 08:50 | Outpatient (RCR) | payer MEDICARE, OTHER, SELFPAY ==
[2022-11-27 08:30] VITALS: BMI 27.6
[2022-12-12 10:20] LABS: International Normalized Ratio 2.6; Prothrombin Time (Protime)PT. 27.3 SECONDS (11.7-14.9)
== END 2022-12-12 18:00 | disposition home or self-care (01) ==
LOC: LAB 08:50
PROVIDERS: Family Provider Internal Medicine; PCP Internal Medicine; Referring Provider Internal Medicine Cardiovascular Disease; Visit Provider Internal Medicine Cardiovascular Disease
DX: I48.92 Unspecified atrial flutter (principal); Z79.01 Long term (current) use of anticoagulants
CPT/HCPCS: 36415; 85610

== ENCOUNTER 2023-01-10 08:32 | Outpatient (RCR) | payer MEDICARE, OTHER, SELFPAY ==
[2022-12-24 22:48] VITALS: BMI 27.6
[2023-01-10 10:20] LABS: International Normalized Ratio 2.7; Prothrombin Time (Protime)PT. 28.6 SECONDS (11.7-14.9)
== END 2023-01-24 21:13 | disposition home or self-care (01) ==
LOC: LAB 08:32
PROVIDERS: Family Provider Internal Medicine; PCP Internal Medicine; Referring Provider Internal Medicine Cardiovascular Disease; Visit Provider Internal Medicine Cardiovascular Disease
DX: I48.92 Unspecified atrial flutter (principal); Z79.01 Long term (current) use of anticoagulants; I48.0 Paroxysmal atrial fibrillation
CPT/HCPCS: 36415; 85610

== ENCOUNTER 2023-02-11 08:09 | Outpatient (RCR) | payer MEDICARE, OTHER, SELFPAY ==
[2023-01-24 21:13] VITALS: BMI 27.6
[2023-02-11 09:08] LABS: International Normalized Ratio 2.8; Prothrombin Time (Protime)PT. 29.1 SECONDS (11.7-14.9)
== END 2023-02-23 02:17 | disposition home or self-care (01) ==
LOC: LAB 08:09
PROVIDERS: Family Provider Internal Medicine; PCP Internal Medicine; Referring Provider Internal Medicine Cardiovascular Disease; Visit Provider Internal Medicine Cardiovascular Disease
DX: I48.92 Unspecified atrial flutter (principal); I48.0 Paroxysmal atrial fibrillation; Z79.01 Long term (current) use of anticoagulants
CPT/HCPCS: 36415; 85610

== ENCOUNTER 2023-03-21 08:48 | Outpatient (RCR) | payer MEDICARE, OTHER, SELFPAY ==
[2023-02-23 02:17] VITALS: BMI 27.6
[2023-03-14 10:49] LABS: International Normalized Ratio 1.2; Prothrombin Time (Protime)PT. 14.9 SECONDS (11.7-14.9)
[2023-03-21 09:35] LABS: International Normalized Ratio 2.1; Prothrombin Time (Protime)PT. 23.5 SECONDS (11.7-14.9)
== END 2023-03-21 10:00 | disposition home or self-care (01) ==
LOC: LAB 08:48
PROVIDERS: Family Provider Internal Medicine; PCP Internal Medicine; Referring Provider Internal Medicine Cardiovascular Disease; Visit Provider Internal Medicine Cardiovascular Disease
DX: I48.92 Unspecified atrial flutter (principal); I48.0 Paroxysmal atrial fibrillation; Z79.01 Long term (current) use of anticoagulants
CPT/HCPCS: 36415; 85610

== ENCOUNTER 2023-04-04 09:39 | Outpatient (RCR) | payer MEDICARE, OTHER, SELFPAY ==
[2023-03-27 08:22] VITALS: BMI 27.6
[2023-04-04 10:54] LABS: International Normalized Ratio 2.8; Prothrombin Time (Protime)PT. 29.6 SECONDS (11.7-14.9)
== END 2023-04-04 18:00 | disposition home or self-care (01) ==
LOC: LAB 09:39
PROVIDERS: Family Provider Internal Medicine; PCP Internal Medicine; Referring Provider Physician Assistant Medical; Visit Provider Physician Assistant Medical
DX: I48.92 Unspecified atrial flutter (principal); I48.0 Paroxysmal atrial fibrillation; Z79.01 Long term (current) use of anticoagulants
CPT/HCPCS: 36415; 85610

== ENCOUNTER 2023-05-05 08:48 | Outpatient (RCR) | payer MEDICARE, OTHER, SELFPAY ==
[2023-04-26 01:35] VITALS: BMI 27.6
[2023-05-05 09:19] LABS: International Normalized Ratio 2.9; Prothrombin Time (Protime)PT. 30.8 SECONDS (11.7-14.9)
== END 2023-05-26 18:00 | disposition home or self-care (01) ==
LOC: LAB 08:48
PROVIDERS: Family Provider Internal Medicine; PCP Internal Medicine; Referring Provider Physician Assistant Medical; Visit Provider Physician Assistant Medical
DX: I48.92 Unspecified atrial flutter (principal); I48.0 Paroxysmal atrial fibrillation; Z79.01 Long term (current) use of anticoagulants
CPT/HCPCS: 36415; 85610

== ENCOUNTER 2023-06-02 08:51 | Outpatient (RCR) | payer MEDICARE, OTHER, SELFPAY ==
[2023-05-27 01:09] VITALS: BMI 27.6
[2023-06-02 09:30] LABS: International Normalized Ratio 2.9; Prothrombin Time (Protime)PT. 30.5 SECONDS (11.7-14.9)
== END 2023-06-02 18:00 | disposition home or self-care (01) ==
LOC: LAB 08:51
PROVIDERS: Family Provider Internal Medicine; PCP Internal Medicine; Referring Provider Physician Assistant Medical; Visit Provider Physician Assistant Medical
DX: I48.92 Unspecified atrial flutter (principal); I48.0 Paroxysmal atrial fibrillation; Z79.01 Long term (current) use of anticoagulants
CPT/HCPCS: 36415; 85610

== ENCOUNTER 2023-07-02 09:23 | Outpatient (RCR) | payer MEDICARE, OTHER, SELFPAY ==
[2023-06-26 23:28] VITALS: BMI 27.6
[2023-07-02 09:54] LABS: Prothrombin Time (Protime)PT. 31.5 SECONDS (11.7-14.9)
== END 2023-07-02 18:00 | disposition home or self-care (01) ==
LOC: LAB 09:23
PROVIDERS: Family Provider Internal Medicine; PCP Internal Medicine; Referring Provider Physician Assistant Medical; Visit Provider Physician Assistant Medical
DX: I48.92 Unspecified atrial flutter (principal); I48.0 Paroxysmal atrial fibrillation; Z79.01 Long term (current) use of anticoagulants
CPT/HCPCS: 36415; 85610

== ENCOUNTER 2023-08-11 08:59 | Outpatient (RCR) | payer MEDICARE, OTHER, SELFPAY ==
[2023-07-27 04:21] VITALS: BMI 27.6
[2023-08-04 10:00] LABS: International Normalized Ratio 3.4; Prothrombin Time (Protime)PT. 35.2 SECONDS (11.7-14.9)
[2023-08-11 09:54] LABS: Prothrombin Time (Protime)PT. 31.9 SECONDS (11.7-14.9)
== END 2023-08-11 18:00 | disposition home or self-care (01) ==
LOC: LAB 08:59
PROVIDERS: Family Provider Internal Medicine; PCP Internal Medicine; Referring Provider Physician Assistant Medical; Visit Provider Physician Assistant Medical
DX: I48.92 Unspecified atrial flutter (principal); I48.0 Paroxysmal atrial fibrillation; Z79.01 Long term (current) use of anticoagulants
CPT/HCPCS: 36415; 85610

== ENCOUNTER 2023-09-09 08:47 | Outpatient (RCR) | payer MEDICARE, OTHER, SELFPAY ==
[2023-08-26 22:43] VITALS: BMI 27.6
[2023-09-09 09:39] LABS: International Normalized Ratio 2.3; Prothrombin Time (Protime)PT. 25.5 SECONDS (11.7-14.9)
== END 2023-09-25 18:00 | disposition home or self-care (01) ==
LOC: LAB 08:47
PROVIDERS: Family Provider Internal Medicine; PCP Internal Medicine; Referring Provider Physician Assistant Medical; Visit Provider Physician Assistant Medical
DX: I48.0 Paroxysmal atrial fibrillation; Z79.01 Long term (current) use of anticoagulants
CPT/HCPCS: 36415; 85610

== ENCOUNTER 2023-10-10 08:53 | Outpatient (RCR) | payer MEDICARE, OTHER, SELFPAY ==
[2023-09-26 04:02] VITALS: BMI 27.6
[2023-10-10 10:47] LABS: International Normalized Ratio 2.7; Prothrombin Time (Protime)PT. 29.3 SECONDS (11.7-14.9)
== END 2023-10-26 18:00 | disposition home or self-care (01) ==
LOC: LAB 08:53
PROVIDERS: Physician Assistant Medical; Family Provider Internal Medicine; PCP Internal Medicine; Visit Provider Nurse Practitioner Family
DX: I48.0 Paroxysmal atrial fibrillation (principal); Z79.01 Long term (current) use of anticoagulants; I48.92 Unspecified atrial flutter
CPT/HCPCS: 36415; 85610

== ENCOUNTER 2023-11-13 11:34 | Outpatient (RCR) | payer MEDICARE, OTHER, SELFPAY ==
[2023-10-26 23:19] VITALS: BMI 27.6
[2023-11-13 12:39] LABS: International Normalized Ratio 3.2; Prothrombin Time (Protime)PT. 33.3 SECONDS (11.7-14.9)
== END 2023-11-13 18:00 | disposition home or self-care (01) ==
LOC: LAB 11:34
PROVIDERS: Family Provider Internal Medicine; PCP Internal Medicine; Referring Provider Nurse Practitioner Family; Visit Provider Nurse Practitioner Family
DX: Z79.01 Long term (current) use of anticoagulants; I48.0 Paroxysmal atrial fibrillation; I48.92 Unspecified atrial flutter
CPT/HCPCS: 36415; 85610

== ENCOUNTER 2023-12-11 09:56 | Outpatient (RCR) | payer MEDICARE, OTHER, SELFPAY ==
[2023-11-26 23:33] VITALS: BMI 27.6
[2023-11-27 16:37] LABS: International Normalized Ratio 1.8; Prothrombin Time (Protime)PT. 20.9 SECONDS (11.7-14.9)
[2023-12-11 10:35] LABS: International Normalized Ratio 3.2; Prothrombin Time (Protime)PT. 32.9 SECONDS (11.7-14.9)
== END 2023-12-25 18:00 | disposition home or self-care (01) ==
LOC: LAB 09:56
PROVIDERS: Family Provider Internal Medicine; PCP Internal Medicine; Referring Provider Nurse Practitioner Family; Visit Provider Nurse Practitioner Family
DX: I48.0 Paroxysmal atrial fibrillation (principal); Z79.01 Long term (current) use of anticoagulants; I48.92 Unspecified atrial flutter
CPT/HCPCS: 36415; 85610

== ENCOUNTER 2024-01-16 08:52 | Outpatient (RCR) | payer MEDICARE, OTHER, SELFPAY ==
[2023-12-26 02:34] VITALS: BMI 27.6
[2023-12-26 09:48] LABS: International Normalized Ratio 2.8; Prothrombin Time (Protime)PT. 29.1 SECONDS (11.7-14.9)
[2024-01-16 09:34] LABS: International Normalized Ratio 2.3; Prothrombin Time (Protime)PT. 25.4 SECONDS (11.7-14.9)
== END 2024-01-25 01:25 | disposition home or self-care (01) ==
LOC: LAB 08:52
PROVIDERS: Family Provider Internal Medicine; PCP Internal Medicine; Referring Provider Nurse Practitioner Family; Visit Provider Nurse Practitioner Family
DX: I48.0 Paroxysmal atrial fibrillation (principal); I48.92 Unspecified atrial flutter; Z79.01 Long term (current) use of anticoagulants
CPT/HCPCS: 36415; 85610

== ENCOUNTER 2024-02-18 09:28 | Outpatient (RCR) | payer MEDICARE, OTHER, SELFPAY ==
[2024-01-25 01:26] VITALS: BMI 27.6
[2024-02-16 09:55] LABS: Prothrombin Time (Protime)PT. 57.2 SECONDS (11.7-14.9)
[2024-02-16 09:58] LABS: International Normalized Ratio 6.6
[2024-02-18 10:52] LABS: International Normalized Ratio 1.8; Prothrombin Time (Protime)PT. 21.2 SECONDS (11.7-14.9)
== END 2024-02-24 23:52 | disposition home or self-care (01) ==
LOC: LAB 09:28
PROVIDERS: Family Provider Internal Medicine; PCP Internal Medicine; Referring Provider Nurse Practitioner Family; Visit Provider Nurse Practitioner Family
DX: I48.0 Paroxysmal atrial fibrillation (principal); I48.92 Unspecified atrial flutter; Z79.01 Long term (current) use of anticoagulants
CPT/HCPCS: 36415; 85610

== ENCOUNTER 2024-05-17 12:06 | Outpatient (RCR) | payer MEDICARE, OTHER, SELFPAY ==
[2024-02-24 23:53] VITALS: BMI 27.6
[2024-05-17 12:46] LABS: Prothrombin Time (Protime)PT. 22.7 SECONDS (11.7-14.9)
== END 2024-05-26 18:00 | disposition home or self-care (01) ==
LOC: LAB 12:06
PROVIDERS: Nurse Practitioner Gerontology; Family Provider Internal Medicine; PCP Internal Medicine; Referring Provider Nurse Practitioner Family; Visit Provider Nurse Practitioner Family
DX: Z95.3 Presence of xenogenic heart valve
CPT/HCPCS: 36415; 85610

== ENCOUNTER → 2024-05-27 | Outpatient (CLI) | payer MEDICARE, OTHER, SELFPAY ==
--- NOTE | 2024-05-27 09:34 | ECHOD_ITS ---
Reason For Study: MV Replacement Procedure This was a 2D Doppler, Color Flow transthoracic echocardiogram. Exam performed in department. Left Ventricle Normal LV size. Left ventricular systolic function is lower limits of normal. The left ventricular ejection fraction is 50 %. No regional wall motion abnormalities noted. Right Ventricle Normal RV size. Normal systolic function. Atria Normal left atrium. Normal right atrium. Mitral Valve Mean transmitral valve gradient 3.4 mmHg. Stable appearing bioprosthetic mitral valve apparatus. Tricuspid Valve Normal tricuspid valve. Mild (1+) tricuspid valve insufficiency. Pulmonary artery systolic pressure is 30 mmHg. Aortic Valve Trisinus/trileaflet aortic valve. Mild focal aortic valve thickening. Mild (1+) aortic valve insufficiency. Pulmonic Valve Normal pulmonic valve. Great Vessels Normal aortic root. The pulmonary artery is normal size. Normal inferior vena cava. Pericardium/Pleural No pericardial effusion. MMode/2D Measurements & Calculations LVIDd: 5.0 cm IVSd: 1.1 cm LVOT diam: 2.1 cm LVIDs: 2.7 cm LVPWd: 0.79 cm LVOT area: 3.4 cm2 RVDd: 3.7 cm FS: 46.4 % Ao root diam: 3.5 cm LAV(MOD-bp): 82.4 ml Aortic Valve Planimetry: 1.6 cm2 ACS: 1.9 cm LAV(MOD-bp) Indexed: 40.7 ml/m2 LA dimension: 4.5 cm LAV(MOD-sp2): 72.7 ml LAV(MOD-sp4): 74.5 ml LA A4 area: 24.6 cm2 Time Measurements MV dec time: 0.34 sec Doppler Measurements & Calculations MV E max gildardo: 147.0 cm/sec Lat Peak E' Gildardo: 9.7 cm/sec Med Peak E' Gildardo: 5.9 cm/sec MV A max gildardo: 68.8 cm/sec E/E' lat: 15.2 E/E' med: 25.0 MV E/A: 2.1 MV V2 max: 177.2 cm/sec MV P1/2t max gildardo: 175.8 cm/sec Ao V2 max: 180.8 cm/sec MV max P.6 mmHg MV P1/2t: 108.9 msec Ao max P.1 mmHg MV V2 mean: 82.5 cm/sec MV dec slope: 472.8 cm/sec2 Ao V2 mean: 123.4 cm/sec MV mean P.4 mmHg Ao mean P.0 mmHg MV V2 VTI: 52.0 cm MVA(P1/2t): 2.0 cm2 Ao V2 VTI: 43.2 cm AI max gildardo: 394.1 cm/sec PA V2 max: 84.8 cm/sec TR max gildardo: 263.0 cm/sec AI max P.1 mmHg PA max PG (full): 1.3 mmHg TR max P.7 mmHg AI dec slope: 142.6 cm/sec2 AI P1/2t: 809.2 msec ECHO/Echo Complete Interpretation Summary Normal LV size. Left ventricular systolic function is lower limits of normal. The left ventricular ejection fraction is 50 %. No regional wall motion abnormalities noted. Stable appearing bioprosthetic mitral valve apparatus. Mean transmitral valve gradient 3.4 mmHg. Ordering Physician: Marci Celis Referring Physician: Marci Celis Performed By: Riley Dejesus and Student
== END | disposition home or self-care (01) ==
LOC: CVS 09:30
PROVIDERS: PCP Internal Medicine; Referring Provider Nurse Practitioner Gerontology; Visit Provider Nurse Practitioner Gerontology
DX: Z95.3 Presence of xenogenic heart valve (principal)
CPT/HCPCS: 93306

== ENCOUNTER 2024-06-16 07:31 | Outpatient (RCR) | payer MEDICARE, OTHER, SELFPAY ==
[2024-05-26 22:50] VITALS: BMI 27.6
[2024-06-16 09:05] LABS: International Normalized Ratio 2.6; Prothrombin Time (Protime)PT. 27.4 SECONDS (11.7-14.9)
== END 2024-06-16 18:00 | disposition home or self-care (01) ==
LOC: LAB 07:31
PROVIDERS: Family Provider Internal Medicine; PCP Internal Medicine; Referring Provider Nurse Practitioner Family; Visit Provider Nurse Practitioner Family
DX: I48.0 Paroxysmal atrial fibrillation (principal)
CPT/HCPCS: 36415; 85610

== ENCOUNTER 2024-07-19 07:45 | Outpatient (RCR) | payer MEDICARE, OTHER, SELFPAY ==
[2024-06-27 05:19] VITALS: BMI 27.6
[2024-07-19 09:14] LABS: International Normalized Ratio 2.8
== END 2024-07-19 18:00 | disposition home or self-care (01) ==
LOC: LAB 07:45
PROVIDERS: Family Provider Internal Medicine; PCP Internal Medicine; Referring Provider Nurse Practitioner Family; Visit Provider Nurse Practitioner Family
DX: I48.0 Paroxysmal atrial fibrillation (principal); I48.92 Unspecified atrial flutter; Z79.01 Long term (current) use of anticoagulants
CPT/HCPCS: 36415; 85610

== ENCOUNTER 2024-08-18 07:23 | Outpatient (RCR) | payer MEDICARE, OTHER, SELFPAY ==
[2024-07-27 04:36] VITALS: BMI 27.6
[2024-08-18 08:15] LABS: International Normalized Ratio 3.3; Prothrombin Time (Protime)PT. 33.4 SECONDS (11.7-14.9)
== END 2024-08-18 18:00 | disposition home or self-care (01) ==
LOC: LAB 07:23
PROVIDERS: Family Provider Internal Medicine; PCP Internal Medicine; Referring Provider Nurse Practitioner Family; Visit Provider Nurse Practitioner Family
DX: I48.0 Paroxysmal atrial fibrillation (principal); I48.92 Unspecified atrial flutter; Z79.01 Long term (current) use of anticoagulants
CPT/HCPCS: 36415; 85610

== ENCOUNTER 2024-09-21 08:03 | Outpatient (RCR) | payer MEDICARE, OTHER, SELFPAY ==
[2024-08-26 21:00] VITALS: BMI 27.6
[2024-09-07 09:10] LABS: Prothrombin Time (Protime)PT. 31.2 SECONDS (11.7-14.9)
[2024-09-21 08:41] LABS: International Normalized Ratio 2.5; Prothrombin Time (Protime)PT. 26.7 SECONDS (11.7-14.9)
== END 2024-09-25 18:00 | disposition home or self-care (01) ==
LOC: LAB 08:03
PROVIDERS: Family Provider Internal Medicine; PCP Internal Medicine; Referring Provider Nurse Practitioner Family; Visit Provider Nurse Practitioner Family
DX: I48.0 Paroxysmal atrial fibrillation (principal); I48.92 Unspecified atrial flutter; Z79.01 Long term (current) use of anticoagulants

== ENCOUNTER 2024-10-22 08:08 | Outpatient (RCR) | payer MEDICARE, OTHER, SELFPAY ==
[2024-09-26 01:34] VITALS: BMI 27.6
[2024-10-12 09:36] LABS: International Normalized Ratio 2.5; Prothrombin Time (Protime)PT. 27.2 SECONDS (11.7-14.9)
[2024-10-22 08:52] LABS: International Normalized Ratio 2.1; Prothrombin Time (Protime)PT. 23.4 SECONDS (11.7-14.9)
== END 2024-10-22 18:00 | disposition home or self-care (01) ==
LOC: LAB 08:08
PROVIDERS: Family Provider Internal Medicine; PCP Internal Medicine; Referring Provider Nurse Practitioner Family; Visit Provider Nurse Practitioner Family
DX: I48.0 Paroxysmal atrial fibrillation (principal); I48.92 Unspecified atrial flutter; Z79.01 Long term (current) use of anticoagulants

== ENCOUNTER 2024-11-22 09:13 | Outpatient (RCR) | payer MEDICARE, OTHER, SELFPAY ==
[2024-10-27 04:46] VITALS: BMI 27.6
[2024-11-22 10:58] LABS: International Normalized Ratio 1.9; Prothrombin Time (Protime)PT. 22.6 SECONDS (11.7-14.9)
== END 2024-11-22 18:00 | disposition home or self-care (01) ==
LOC: LAB 09:13
PROVIDERS: Family Provider Internal Medicine; PCP Internal Medicine; Referring Provider Nurse Practitioner Family; Visit Provider Nurse Practitioner Family
DX: I48.92 Unspecified atrial flutter; Z79.01 Long term (current) use of anticoagulants
CPT/HCPCS: 36415; 85610

== ENCOUNTER 2024-12-20 08:35 | Outpatient (RCR) | payer MEDICARE, OTHER, SELFPAY ==
[2024-11-27 04:41] VITALS: BMI 27.6
[2024-12-06 12:32] LABS: International Normalized Ratio 1.1; Prothrombin Time (Protime)PT. 14.1 SECONDS (11.7-14.9)
[2024-12-16 09:21] LABS: International Normalized Ratio 1.2; Prothrombin Time (Protime)PT. 15.1 SECONDS (11.7-14.9)
[2024-12-20 10:01] LABS: International Normalized Ratio 1.6
== END 2024-12-24 18:00 | disposition home or self-care (01) ==
LOC: LAB 08:35
PROVIDERS: Family Provider Internal Medicine; PCP Internal Medicine; Referring Provider Nurse Practitioner Family; Visit Provider Nurse Practitioner Family
DX: I48.0 Paroxysmal atrial fibrillation (principal); I48.92 Unspecified atrial flutter; Z79.01 Long term (current) use of anticoagulants
CPT/HCPCS: 36415; 85610

== ENCOUNTER 2025-01-19 08:18 | Outpatient (RCR) | payer MEDICARE, OTHER, SELFPAY ==
[2024-12-25 07:30] VITALS: BMI 27.6
[2025-01-19 09:23] LABS: International Normalized Ratio 2.4; Prothrombin Time (Protime)PT. 26.3 SECONDS (11.7-14.9)
== END 2025-01-19 18:00 | disposition home or self-care (01) ==
LOC: LAB 08:18
PROVIDERS: Family Provider Internal Medicine; PCP Internal Medicine; Referring Provider Nurse Practitioner Family; Visit Provider Nurse Practitioner Family
DX: I48.0 Paroxysmal atrial fibrillation (principal); I48.92 Unspecified atrial flutter; Z79.01 Long term (current) use of anticoagulants
CPT/HCPCS: 36415; 85610

== ENCOUNTER 2025-02-18 07:53 | Outpatient (RCR) | payer MEDICARE, OTHER, SELFPAY ==
[2025-01-24 22:44] VITALS: BMI 27.6
[2025-02-18 09:07] LABS: International Normalized Ratio 1.8; Prothrombin Time (Protime)PT. 21.4 SECONDS (11.7-14.9)
== END 2025-02-23 18:00 | disposition home or self-care (01) ==
LOC: LAB 07:53
PROVIDERS: Family Provider Internal Medicine; PCP Internal Medicine; Referring Provider Nurse Practitioner Family; Visit Provider Nurse Practitioner Family
DX: I48.0 Paroxysmal atrial fibrillation (principal); I48.92 Unspecified atrial flutter; Z79.01 Long term (current) use of anticoagulants
CPT/HCPCS: 36415; 85610

== ENCOUNTER 2025-03-18 09:01 | Outpatient (RCR) | payer MEDICARE, OTHER, SELFPAY ==
[2025-02-23 22:04] VITALS: BMI 27.6
[2025-03-18 09:57] LABS: International Normalized Ratio 1.9; Prothrombin Time (Protime)PT. 22.4 SECONDS (11.7-14.9)
== END 2025-03-18 18:00 | disposition home or self-care (01) ==
LOC: LAB 09:01
PROVIDERS: Family Provider Internal Medicine; PCP Internal Medicine; Referring Provider Nurse Practitioner Family; Visit Provider Nurse Practitioner Family
DX: I48.92 Unspecified atrial flutter; Z79.01 Long term (current) use of anticoagulants
CPT/HCPCS: 36415; 85610

== ENCOUNTER 2025-04-08 09:17 | Outpatient (RCR) | payer MEDICARE, OTHER, SELFPAY ==
[2025-03-27 19:13] VITALS: BMI 27.6
[2025-04-08 10:30] LABS: International Normalized Ratio 2.5; Prothrombin Time (Protime)PT. 27.9 SECONDS (11.7-14.9)
== END 2025-04-08 18:00 | disposition home or self-care (01) ==
LOC: LAB 09:17
PROVIDERS: Family Provider Internal Medicine; PCP Internal Medicine; Referring Provider Nurse Practitioner Family; Visit Provider Nurse Practitioner Family
DX: I48.92 Unspecified atrial flutter; Z79.01 Long term (current) use of anticoagulants
CPT/HCPCS: 36415; 85610

== ENCOUNTER 2025-05-10 08:08 | Outpatient (RCR) | payer MEDICARE, OTHER, SELFPAY ==
[2025-05-10 09:19] LABS: Prothrombin Time (Protime)PT. 22.1 SECONDS (11.7-14.9)
== END 2025-05-26 21:31 | disposition home or self-care (01) ==
LOC: LAB 08:08
PROVIDERS: Family Provider Internal Medicine; PCP Internal Medicine; Referring Provider Nurse Practitioner Family; Visit Provider Nurse Practitioner Family
DX: I48.92 Unspecified atrial flutter; Z79.01 Long term (current) use of anticoagulants
CPT/HCPCS: 36415; 85610

== ENCOUNTER 2025-06-10 08:54 | Outpatient (RCR) | payer MEDICARE, OTHER, SELFPAY ==
[2025-06-10 09:53] LABS: Prothrombin Time (Protime)PT. 26.5 SECONDS (11.7-14.9)
== END 2025-06-10 18:00 | disposition home or self-care (01) ==
LOC: LAB 08:54
PROVIDERS: Family Provider Internal Medicine; PCP Internal Medicine; Referring Provider Nurse Practitioner Family; Visit Provider Nurse Practitioner Family
DX: I48.0 Paroxysmal atrial fibrillation (principal); Z79.01 Long term (current) use of anticoagulants
CPT/HCPCS: 36415; 85610

== ENCOUNTER 2025-07-12 08:33 | Outpatient (RCR) | payer MEDICARE, OTHER, SELFPAY ==
[2025-07-12 09:27] LABS: Prothrombin Time (Protime)PT. 22.9 SECONDS (11.7-14.9)
== END 2025-07-26 18:00 | disposition home or self-care (01) ==
LOC: LAB 08:33
PROVIDERS: Family Provider Internal Medicine; PCP Internal Medicine; Referring Provider Nurse Practitioner Family; Visit Provider Nurse Practitioner Family
DX: I48.92 Unspecified atrial flutter; Z79.01 Long term (current) use of anticoagulants
CPT/HCPCS: 36415; 85610

== ENCOUNTER 2025-08-10 13:24 | Outpatient (RCR) | payer MEDICARE, OTHER, SELFPAY ==
[2025-08-10 14:01] LABS: Prothrombin Time (Protime)PT. 29.3 SECONDS (11.7-14.9)
== END 2025-08-10 18:00 | disposition home or self-care (01) ==
LOC: LAB 13:24
PROVIDERS: Family Provider Internal Medicine; PCP Internal Medicine; Referring Provider Nurse Practitioner Family; Visit Provider Nurse Practitioner Family
DX: I48.92 Unspecified atrial flutter; Z79.01 Long term (current) use of anticoagulants
CPT/HCPCS: 36415; 85610

== ENCOUNTER 2025-09-12 09:03 | Outpatient (RCR) | payer MEDICARE, OTHER, SELFPAY ==
[2025-09-12 09:44] LABS: Prothrombin Time (Protime)PT. 18.0 SECONDS (11.7-14.9)
[2025-09-12 10:11] LABS: Cholesterol 178 mg/dL (<=200); Low Density Lipoprotein Calc. 102 mg/dL; Triglycerides 154 mg/dL; Very Low Density Lipoprotein 31 mg/dL (5-40); cholesterol:hdl ratio screen 3.64
[2025-09-12 10:32] LABS: AST(SGOT) 30 U/L (<=37); Alanine Aminotransfer ALT/SGPT 23 U/L (<=46); Albumin, Serum 4.5 g/dL (3.4-4.8); Alkaline Phosphatase 74 U/L (40-129); Bilirubin, Direct 0.44 mg/dL (0.00-0.30); Globulin 3.6 g/dL (2.2-4.2)
== END 2025-09-25 18:00 | disposition home or self-care (01) ==
LOC: LAB 09:03
PROVIDERS: Internal Medicine Cardiovascular Disease; Family Provider Internal Medicine; PCP Internal Medicine; Referring Provider Nurse Practitioner Family; Visit Provider Nurse Practitioner Family
DX: I48.92 Unspecified atrial flutter; Z79.01 Long term (current) use of anticoagulants; E78.00 Pure hypercholesterolemia, unspecified
CPT/HCPCS: 36415; 80061; 80076; 85610

== ENCOUNTER 2025-10-24 09:06 | Outpatient (RCR) | payer MEDICARE, OTHER, SELFPAY ==
[2025-10-13 09:28] LABS: Prothrombin Time (Protime)PT. 23.8 SECONDS (11.7-14.9)
[2025-10-24 10:05] LABS: Prothrombin Time (Protime)PT. 28.7 SECONDS (11.7-14.9)
== END 2025-10-24 18:00 | disposition home or self-care (01) ==
LOC: LAB 09:06
PROVIDERS: Family Provider Internal Medicine; PCP Internal Medicine; Referring Provider Nurse Practitioner Family; Visit Provider Nurse Practitioner Family
DX: Z79.01 Long term (current) use of anticoagulants (principal); I48.0 Paroxysmal atrial fibrillation
CPT/HCPCS: 36415; 85610

== ENCOUNTER 2025-10-24 09:34 | Emergency (ER) | payer MEDICARE, OTHER, SELFPAY ==
[2025-10-24 09:34] VITALS: BP 101/63; PULSE 83; RESP 16; TEMP 36; O2SAT 96
--- NOTE | 2025-10-24 10:10 | ED.VIS.DENTA ---
HPI History of Present Illness Chief Complaint: Dental Informant: patient Narrative Narrative: Patient is a 80-year-old male presenting with severe dental pain. - Reports severe pain in two teeth on the right side, persisting for almost a week. - Pain is intense enough to cause crying; described as hurting so bad I cried last night. - Denies bleeding, discharge, or pus. - Denies fevers. - No known allergies to antibiotics. - Does not currently have a dentist; had previous extractions performed by a dentist in [place], unsure if they are still practicing. 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 Pure hypercholesterolemia Rheumatic heart disease, unspecified Peripheral neuropathy Paroxysmal atrial fibrillation Essential hypertension Home Medications ?Medication ?Instructions ?Recorded ?Last Taken ?Type finasteride 5 mg tablet 5 mg PO DAILY 08/24/16 Unknown History losartan 25 mg tablet 25 mg PO DAILY 08/24/16 Unknown History cyanocobalamin (vitamin B-12) 1,000 mcg PO DAILY 07/05/19 Unknown History 1,000 mcg capsule warfarin 1 mg tablet 1 mg PO DAILY 04/01/22 Unknown History spironolactone 25 mg tablet 25 mg PO DAILY #90 tabs 12/23/23 Unknown Rx metoprolol tartrate 25 mg tablet 25 mg PO BID #180 tabs 02/09/25 Unknown Rx warfarin 4 mg tablet 4 mg PO DAILY #90 tabs 03/16/25 Unknown Rx levothyroxine 50 mcg tablet 50 mcg PO Q OTHER DAY 07/01/25 Unknown History dofetilide 500 mcg capsule 500 mcg PO BID #180 caps 09/07/25 Unknown Rx rosuvastatin 20 mg tablet 20 mg PO QDAY #90 tabs 09/12/25 Unknown Rx amoxicillin 500 mg tablet 500 mg PO TID #30 tabs 10/24/25 Unknown Rx hydrocodone-acetaminophen 5-325mg 1 tab PO Q6H PRN PRN Pain 3 days 10/24/25 Unknown Rx 5mg-325mg #10 TABLETS Allergy/AdvReac Type Severity Reaction Status Date / Time ramipril Allergy Other Verified 10/24/25 09:37 Family History Grandmother Diabetes Surgical History History of tonsillectomy and adenoidectomy History of radiofrequency ablation procedure for cardiac arrhythmia (~09/14/18) History of mitral valve replacement with bioprosthetic valve (~03/24/08) History of left inguinal hernia repair Social History Smoking Status: Never smoker alcohol intake: never substance use type: does not use caffeine: Yes Type: coffee Number of servings: 2 ROS ROS ED Constitutional Constitutional ED: Denies chills or fever(s) Eyes Eyes: Denies change in vision or double vision ENT ENT ED: Reports dental pain; Denies sinus pain or throat swelling Cardiovascular Cardiovascular: Denies chest pain or palpitations Respiratory/Chest Respiratory/Chest: Denies cough or dyspnea Integumentary Denies abscess or rash Neurologic Neurologic: Denies headache(s), paresthesias or weakness EXAM Physical Exam Const Vital Signs: 10/24/25 09:34 Temperature 96.8 F L Temperature Source Temporal Pulse Rate 83 Respiratory Rate 16 Blood Pressure 101/63 Blood Pressure Mean 75 Pulse Ox 96 Oxygen Delivery Method Room Air Positive well nourished and well developed General Appearance ED: well developed and NAD HEENT HEENT Narrative: Marked dental decay of two residual right-sided mandibular teeth; no visible dental abscess, no purulent d/c, no bleeding, no sublingual edema or tongue elevation, no trismus. Face and Sinus: sinuses nontender Throat: posterior oropharynx normal Eyes PERRL and EOMs intact bilaterally Neck no lymphadenopathy and supple Resp normal respiratory effort Neuro oriented x3 and CN's II-XII intact bilaterally Sensorium / Orientation: alert Gait (Neuro): normal gait Psych mental status grossly normal and thought process normal Skin no rashes or lesions noted and no wounds MDM MDM MDM Narrative Medical decision making narrative: Assessment: The patient is a 80-year-old male presenting for severe right mandibular tooth pain for one week. Exam shows two remaining right lower teeth, one with visible decay and the other with an existing filling; both are exquisitely tender. No fluctuance, swelling, trismus, drainage, or signs of abscess observed. Afebrile and denies systemic symptoms. Findings are most consistent with pain and infection secondary to dental caries. Plan: - Prescribed amoxicillin. - Prescribed oral pain medication; patient declined dose in ED and will initiate at home. - Provided printed list of low-cost dental clinics and instructed to arrange urgent dental extraction. - Discharged home in stable condition. Portions of this note were generated using voice recognition software ([employer]). I have reviewed the contents and every effort has been made to ensure accuracy; however, inadvertent errors in grammar, spelling, punctuation, or word choice may occur, that were not noted before signing the document and should not alter the intended clinical meaning. Discharge Plan Triage Chief Complaint: Dental ED Provider: Ramses Bonilla Dx/Rx/DC Orders Clinical Impression: Pain due to dental caries, Dental infection Instructions: ED Dental Cavity Prescriptions: New hydrocodone-acetaminophen 5-325 mg tablet 1 tab PO Q6H PRN PRN (Reason: Pain) 3 Days Qty: 10 0RF amoxicillin 500 mg tablet 500 mg PO TID Qty: 30 0RF No Action cyanocobalamin (vitamin B-12) 1,000 mcg capsule 1,000 mcg PO DAILY warfarin 1 mg tablet 1 mg PO DAILY Protocol: Dose Management Condition: Friday Dose/Route: 4 mg Instruction: 1 x 4 mg tablet Condition: Friday Dose/Route: 6 mg Instruction: 2 x 1 mg tablets, 1 x 4 mg tablet Condition: Friday Dose/Route: 4 mg Instruction: 1 x 4 mg tablet Condition: Friday Dose/Route: 4 mg Instruction: 1 x 4 mg tablet Condition: Dose/Route: 4 mg Instruction: 1 x 4 mg tablet Condition: Friday Dose/Route: 4 mg Instruction: 1 x 4 mg tablet Condition: Friday Dose/Route: 4 mg Instruction: 1 x 4 mg tablet Protocol Text: Adjustment Start Date: 10/13/25 INR Value: 2.1 INR Date: 10/13/25 Recheck Date: 11/03/25 losartan 25 MG tablet 25 mg PO DAILY finasteride 5 MG tablet 5 mg PO DAILY spironolactone 25 mg tablet 25 mg PO DAILY Qty: 90 3RF metoprolol tartrate 25 mg tablet 25 mg PO BID Qty: 180 3RF warfarin 4 mg tablet 4 mg PO DAILY Qty: 90 3RF Protocol: Dose Management Condition: Friday Dose/Route: 4 mg Instruction: 1 x 4 mg tablet Condition: Friday Dose/Route: 6 mg Instruction: 2 x 1 mg tablets, 1 x 4 mg tablet Condition: Friday Dose/Route: 4 mg Instruction: 1 x 4 mg tablet Condition: Friday Dose/Route: 4 mg Instruction: 1 x 4 mg tablet Condition: Dose/Route: 4 mg Instruction: 1 x 4 mg tablet Condition: Friday Dose/Route: 4 mg Instruction: 1 x 4 mg tablet Condition: Friday Dose/Route: 4 mg Instruction: 1 x 4 mg tablet Protocol Text: Adjustment Start Date: 10/13/25 INR Value: 2.1 INR Date: 10/13/25 Recheck Date: 11/03/25 levothyroxine 50 mcg tablet 50 mcg PO Q OTHER DAY dofetilide 500 mcg capsule 500 mcg PO BID Qty: 180 3RF rosuvastatin 20 mg tablet 20 mg PO QDAY Qty: 90 3RF Primary Care Provider: Paola Carter Referrals: Dentist,Your [STAFF PHYSICIAN, Dentistry] Referral Note: see attached resource list if you need Print Language: Urdu Disposition Disposition: Home, Self Care
[2025-10-24] MEDS: AMOXICILLIN 500 MG CAPSULE PO (10:21)
[2025-10-24 10:23] VITALS: BP 101/63; PULSE 83; RESP 16; TEMP 36; O2SAT 96
== END 2025-10-24 10:24 | disposition home or self-care (01) ==
LOC: ED 10:15
PROVIDERS: Emergency Provider Emergency Medicine; PCP Internal Medicine; Visit Provider Emergency Medicine
DX: K02.9 Dental caries, unspecified (principal); K04.7 Periapical abscess without sinus; I10 Essential (primary) hypertension; E78.00 Pure hypercholesterolemia, unspecified
CPT/HCPCS: 99282